=== PATIENT | female | born 1980 | race Caucasian/White ===

== ENCOUNTER 2019-10-22 11:57 | Emergency (ER) | payer OTHER ==
[~2019-10-22] VITALS: Ht 160 cm; Wt 84.1 kg
[2019-10-22 13:02] LABS: BASOPHILS # (AUTO) 0.1 X10'3 (0-0.2); BASOPHILS % (AUTO) 0.7 % (0-1); EOSINOPHILS # (AUTO) 0.1 X10'3 (0-0.9); HEMATOCRIT 43.6 % (35.0-45.0); HEMOGLOBIN 15.3 g/dl (12.0-16.0); LYMPHOCYTES % (AUTO) 11.7 % (21-51); MEAN CORPUSCULAR HEMOGLOBIN 31.5 PG (27.0-31.0); MEAN CORPUSCULAR VOLUME 90.1 FL (78-98); MEAN PLATELET VOLUME 8.5 FL (7.4-10.4); NEUTROPHILS # (AUTO) 6.4 X10'3 (1.8-7.7); NEUTROPHILS % (AUTO) 74.6 % (42-75); PLATELET COUNT 282 X10'3 (140-440); RED BLOOD COUNT 4.84 X10'6 (4.20-5.60); WHITE BLOOD COUNT 8.6 X10'3 (4.5-11.0)
[2019-10-22 13:14] LABS: ALANINE AMINOTRANSFERASE 32 U/L (12-78); ALBUMIN 4.5 G/DL (3.4-5.0); ALBUMIN/GLOBULIN RATIO 1.3 (1.1-1.5); ALKALINE PHOSPHATASE 65 IU/L (46-116); ANION GAP 9 (8-16); ASPARTATE AMINO TRANSFERASE 20 U/L (10-37); BILIRUBIN,TOTAL 0.5 MG/DL (0.1-1.0); BLOOD UREA NITROGEN 12 MG/DL (7-18); BUN/CREATININE RATIO 10.8 (6.6-38.0); CALCIUM 9.4 MG/DL (8.5-10.1); CHLORIDE 104 MMOL/L (99-107); CREATININE 1.11 MG/DL (0.40-0.90); GLUCOSE 84 MG/DL (70-104); SODIUM 139 MMOL/L (135-145); TOTAL CARBON DIOXIDE 25.7 MMOL/L (24-32); TOTAL PROTEIN 8.1 G/DL (6.4-8.2); eGFR 55 ML/MIN
[2019-10-22 15:34] VITALS: BP 134/84
== END 2019-10-22 15:35 | disposition home or self-care (01) ==
LOC: ER 11:58
DX: R00.0 Tachycardia, unspecified (principal); R07.89 Other chest pain; R05 Cough; Z88.2 Allergy status to sulfonamides; Z88.8 Allergy status to other drugs, medicaments and biological substances
CPT/HCPCS: 36415; 71045; 80053; 84484; 85025; 93005; 99284

== ENCOUNTER 2020-11-08 19:08 | Emergency (ER) | payer BC, OTHER ==
[~2020-11-08] VITALS: Ht 160 cm; Wt 86.0 kg
--- NOTE | 2020-11-08 19:30 | NUR ---
PT WAITING FOR BED IN ROOM 18
[2020-11-08] MEDS ORDERED: PANT-47 PO (21:07)
[2020-11-08] MEDS ORDERED: pantoprazole 40mg Tablet.DR PO ONE (21:15)
[2020-11-08 21:17] VITALS: BP 119/79
== END 2020-11-08 21:19 | disposition home or self-care (01) ==
LOC: ER 19:10
DX: R07.89 Other chest pain (principal); R42 Dizziness and giddiness; R06.02 Shortness of breath; R10.13 Epigastric pain; K21.9 Gastro-esophageal reflux disease without esophagitis; Z87.11 Personal history of peptic ulcer disease; Z88.2 Allergy status to sulfonamides; Z88.1 Allergy status to other antibiotic agents; Z88.8 Allergy status to other drugs, medicaments and biological substances; Z79.899 Other long term (current) drug therapy
CPT/HCPCS: 93005; 99283

== ENCOUNTER 2021-02-20 19:35 | Emergency (ER) | payer BC, OTHER ==
[~2021-02-20] VITALS: Ht 157.5 cm; Wt 86.4 kg
[~2021-02-20 19:35] MED LIST: PANT-47 PO
[2021-02-20 19:53] VITALS: BP 128/70
--- NOTE | 2021-02-20 20:15 | NUR ---
Pt presents d/t right hip pain following assisting a patient into bed. Pt AAOx4, no s/sx of acute distress noted at this time. Respirations even, unlabored. Ice pack provided.
== END 2021-02-20 20:54 | disposition home or self-care (01) ==
LOC: ER 19:36
DX: S83.91XA Sprain of unspecified site of right knee, initial encounter (principal); M25.551 Pain in right hip; K21.9 Gastro-esophageal reflux disease without esophagitis; Z87.11 Personal history of peptic ulcer disease; Z88.2 Allergy status to sulfonamides; Z88.8 Allergy status to other drugs, medicaments and biological substances; Z79.899 Other long term (current) drug therapy; X50.1XXA Overexertion from prolonged static or awkward postures, initial encounter; Y93.89 Activity, other specified; Y92.89 Other specified places as the place of occurrence of the external cause; Y99.8 Other external cause status
CPT/HCPCS: 99281

== ENCOUNTER 2021-04-02 09:56 | Emergency (ER) | payer BC, OTHER ==
[~2021-04-02] VITALS: Ht 160 cm; Wt 84.1 kg
[2021-04-02 10:15] VITALS: BP 130/86
[2021-04-02 11:02] LABS: URINE HCG NEGATIVE (NEG)
[2021-04-02 11:04] LABS: CLARITY,URINE CLOUDY (Clear); COLOR,URINE RED (Yellow); PH,URINE 5.5 (4.8-8.0)
[2021-04-02 11:09] LABS: UA COLLECTION TYPE CLN CATCH MIDSTREAM
[2021-04-02 11:18] LABS: BASOPHILS # (AUTO) 0.1 X10'3 (0-0.2); EOSINOPHILS % (AUTO) 0.6 % (0-6); HEMATOCRIT 41.5 % (35.0-45.0); HEMOGLOBIN 14.3 g/dl (12.0-16.0); LYMPHOCYTES # (AUTO) 1.8 X10'3 (1.1-4.8); LYMPHOCYTES % (AUTO) 24.8 % (21-51); MEAN CORPUSCULAR HEMOGLOBIN 32.1 PG (27.0-31.0); MEAN CORPUSCULAR HGB CONC 34.4 g/dL (33.0-36.5); MEAN CORPUSCULAR VOLUME 93.5 FL (78-98); MEAN PLATELET VOLUME 7.5 FL (7.4-10.4); MONOCYTES # (AUTO) 0.5 X10'3 (0-0.9); MONOCYTES % (AUTO) 6.7 % (2-12); NEUTROPHILS # (AUTO) 4.9 X10'3 (1.8-7.7); NEUTROPHILS % (AUTO) 66.9 % (42-75); PLATELET COUNT 309 X10'3 (140-440); RED BLOOD COUNT 4.44 X10'6 (4.20-5.60); RED CELL DISTRIBUTION WIDTH 13.3 % (11.5-14.5); WHITE BLOOD COUNT 7.3 X10'3 (4.5-11.0)
[2021-04-02 11:20] LABS: RBC,URINE TNTC /HPF (0-2); WBC,URINE 20-30 /HPF (0-4)
[2021-04-02 11:21] LABS: BACTERIA,URINE FEW /HPF (Neg); SQUAMOUS EPITHELIAL CELL,UR MODERATE /LPF (FEW)
[2021-04-02 11:27] LABS: PARTIAL THROMBOPLASTIN TIME 30 SECONDS (22-32)
[2021-04-02 11:39] LABS: ALANINE AMINOTRANSFERASE 26 U/L (12-78); ALBUMIN/GLOBULIN RATIO 1.1 (1.1-1.5); ALKALINE PHOSPHATASE 57 IU/L (46-116); ANION GAP 9 (8-16); ASPARTATE AMINO TRANSFERASE 16 U/L (10-37); BILIRUBIN,TOTAL 0.4 MG/DL (0.1-1.0); BLOOD UREA NITROGEN 9 MG/DL (7-18); BUN/CREATININE RATIO 8.5 (6.6-38.0); CALCIUM 8.9 MG/DL (8.5-10.1); CHLORIDE 105 MMOL/L (99-107); CREATININE 1.06 MG/DL (0.40-0.90); GLUCOSE 84 MG/DL (70-104); POTASSIUM 3.7 MMOL/L (3.5-5.1); SODIUM 141 MMOL/L (135-145); TOTAL CARBON DIOXIDE 26.6 MMOL/L (24-32); TOTAL PROTEIN 7.5 G/DL (6.4-8.2); eGFR 57 ML/MIN
[2021-04-02 11:44] LABS: BETA HCG,QUANTITATIVE 18 mIU/ml
[2021-04-02] MEDS ORDERED: NITR100C PO (11:56)
== END 2021-04-02 12:11 | disposition home or self-care (01) ==
LOC: ER 09:57
DX: N39.0 Urinary tract infection, site not specified (principal); R10.30 Lower abdominal pain, unspecified; K21.9 Gastro-esophageal reflux disease without esophagitis; R35.8 Other polyuria; Z90.49 Acquired absence of other specified parts of digestive tract; Z88.2 Allergy status to sulfonamides; Z88.1 Allergy status to other antibiotic agents; Z91.040 Latex allergy status; Z79.899 Other long term (current) drug therapy
CPT/HCPCS: 36415; 80053; 81001; 81025; 84702; 85025; 85610; 85730; 87088; 99283

== ENCOUNTER 2021-04-12 11:48 | Outpatient (CLI) | payer BC ==
[~2021-04-12 11:48] MED LIST changes: +NITR100C PO
== END 2021-04-12 23:59 | disposition home or self-care (01) ==
LOC: LAB 11:48
PROVIDERS: ATTEND Physician Assistant
DX: O03.9 Complete or unspecified spontaneous abortion without complication (principal)
CPT/HCPCS: 36415; 84702

== ENCOUNTER 2022-05-25 09:08 | Outpatient (CLI) | payer BC ==
[2022-05-25 09:36] LABS: BASOPHILS # (AUTO) 0.1 X10'3 (0-0.2); BASOPHILS % (AUTO) 0.8 % (0-1); EOSINOPHILS # (AUTO) 0.2 X10'3 (0-0.9); LYMPHOCYTES # (AUTO) 2.2 X10'3 (1.1-4.8); LYMPHOCYTES % (AUTO) 25.2 % (21-51); MEAN CORPUSCULAR HEMOGLOBIN 31.8 PG (27.0-31.0); MEAN CORPUSCULAR HGB CONC 34.2 g/dL (33.0-36.5); MEAN PLATELET VOLUME 7.2 FL (7.4-10.4); MONOCYTES # (AUTO) 0.7 X10'3 (0-0.9); MONOCYTES % (AUTO) 7.8 % (2-12); NEUTROPHILS # (AUTO) 5.5 X10'3 (1.8-7.7); NEUTROPHILS % (AUTO) 64.2 % (42-75); PLATELET COUNT 266 X10'3 (140-440); RED BLOOD COUNT 4.72 X10'6 (4.20-5.60); RED CELL DISTRIBUTION WIDTH 13.5 % (11.5-14.5); WHITE BLOOD COUNT 8.5 X10'3 (4.5-11.0)
[2022-05-25 10:08] LABS: ALANINE AMINOTRANSFERASE 28 U/L (12-78); ALBUMIN 3.9 G/DL (3.4-5.0); ALKALINE PHOSPHATASE 62 IU/L (46-116); ANION GAP 10 (8-16); ASPARTATE AMINO TRANSFERASE 21 U/L (10-37); BILIRUBIN,TOTAL 0.4 MG/DL (0.1-1.0); BLOOD UREA NITROGEN 20 MG/DL (7-18); BUN/CREATININE RATIO 17.9 (6.6-38.0); CALCIUM 8.7 MG/DL (8.5-10.1); CHLORIDE 103 MMOL/L (99-107); CREATININE 1.12 MG/DL (0.40-0.90); GLUCOSE 86 MG/DL (70-104); SODIUM 139 MMOL/L (135-145); TOTAL CARBON DIOXIDE 25.7 MMOL/L (24-32); TOTAL PROTEIN 7.7 G/DL (6.4-8.2); eGFR 53 ML/MIN
[2022-05-25 10:10] LABS: POTASSIUM 4.3 MMOL/L (3.5-5.1)
[2022-05-25 10:41] LABS: HEMOGLOBIN A1C 4.9 % (4.5-6.2)
== END 2022-05-25 23:59 | disposition home or self-care (01) ==
LOC: LAB 09:08
PROVIDERS: ATTEND Family Medicine
DX: E11.9 Type 2 diabetes mellitus without complications (principal); E03.9 Hypothyroidism, unspecified
CPT/HCPCS: 36415; 80053; 83036; 84443; 85025

== ENCOUNTER 2022-09-06 18:02 | Emergency (ER) | payer BC ==
[~2022-09-06] VITALS: Ht 160 cm; Wt 91.8 kg
[2022-09-06] MEDS ORDERED: LIDOcaine Viscous 15ml cup MM STA (18:56)
[2022-09-06] MEDS ORDERED: mag hydrox/Alum hydrox/simeth 30ml oral suspension PO STA (18:56)
[2022-09-06] MEDS ORDERED: acetaminophen 325mg tablet PO ONE (20:50)
[2022-09-06 21:22] LABS: BASOPHILS # (AUTO) 0.1 X10'3 (0-0.2); BASOPHILS % (AUTO) 1.1 % (0-1); EOSINOPHILS # (AUTO) 0.3 X10'3 (0-0.9); EOSINOPHILS % (AUTO) 2.2 % (0-6); HEMATOCRIT 44.5 % (35.0-45.0); HEMOGLOBIN 14.9 g/dl (12.0-16.0); LYMPHOCYTES # (AUTO) 3.3 X10'3 (1.1-4.8); LYMPHOCYTES % (AUTO) 28.4 % (21-51); MEAN CORPUSCULAR HEMOGLOBIN 31.4 PG (27.0-31.0); MEAN CORPUSCULAR HGB CONC 33.4 g/dL (33.0-36.5); MEAN CORPUSCULAR VOLUME 94.1 FL (78-98); MEAN PLATELET VOLUME 7.1 FL (7.4-10.4); MONOCYTES # (AUTO) 0.9 X10'3 (0-0.9); MONOCYTES % (AUTO) 7.9 % (2-12); NEUTROPHILS % (AUTO) 60.4 % (42-75); PLATELET COUNT 315 X10'3 (140-440); RED BLOOD COUNT 4.73 X10'6 (4.20-5.60); RED CELL DISTRIBUTION WIDTH 13.6 % (11.5-14.5); WHITE BLOOD COUNT 11.6 X10'3 (4.5-11.0)
[2022-09-06 21:30] LABS: ALANINE AMINOTRANSFERASE 36 U/L (12-78); ALBUMIN 4.1 G/DL (3.4-5.0); ALBUMIN/GLOBULIN RATIO 1.1 (1.1-1.5); ALKALINE PHOSPHATASE 67 IU/L (46-116); ANION GAP 7 (8-16); ASPARTATE AMINO TRANSFERASE 23 U/L (10-37); BILIRUBIN,TOTAL 0.5 MG/DL (0.1-1.0); BLOOD UREA NITROGEN 20 MG/DL (7-18); CALCIUM 9.6 MG/DL (8.5-10.1); CHLORIDE 102 MMOL/L (99-107); CREATININE 1.11 MG/DL (0.40-0.90); GLUCOSE 77 MG/DL (70-104); SODIUM 138 MMOL/L (135-145); TOTAL CARBON DIOXIDE 28.8 MMOL/L (24-32); TOTAL PROTEIN 7.9 G/DL (6.4-8.2); eGFR 54 ML/MIN
[2022-09-06 21:39] LABS: LIPASE 128 U/L (73-393)
[2022-09-06 22:36] VITALS: BP 128/70
== END 2022-09-06 22:38 | disposition home or self-care (01) ==
LOC: ER 18:03
DX: R07.89 Other chest pain (principal); K29.00 Acute gastritis without bleeding; F41.9 Anxiety disorder, unspecified; R06.02 Shortness of breath; K21.9 Gastro-esophageal reflux disease without esophagitis; Z87.11 Personal history of peptic ulcer disease; Z90.49 Acquired absence of other specified parts of digestive tract; Z88.2 Allergy status to sulfonamides; Z88.1 Allergy status to other antibiotic agents; Z91.040 Latex allergy status; Z79.899 Other long term (current) drug therapy
CPT/HCPCS: 36415; 71045; 80053; 83690; 83880; 84484; 85025; 93005; 99285; L4360

== ENCOUNTER 2023-04-23 18:51 | Emergency (ER) | payer BC, OTHER ==
[~2023-04-23] VITALS: Ht 157.5 cm; Wt 90.9 kg
[2023-04-23 18:55] VITALS: BP 142/82
== END 2023-04-23 22:08 | disposition home or self-care (01) ==
LOC: ER 18:52
DX: R51.9 Headache, unspecified (principal); K21.9 Gastro-esophageal reflux disease without esophagitis; Z88.2 Allergy status to sulfonamides; Z91.09 Other allergy status, other than to drugs and biological substances; Z88.1 Allergy status to other antibiotic agents; Z91.040 Latex allergy status; Z90.49 Acquired absence of other specified parts of digestive tract
CPT/HCPCS: 70450; 99284

== ENCOUNTER 2023-06-05 14:08 | Emergency (ER) | payer BC ==
[~2023-06-05] VITALS: Ht 157.5 cm; Wt 90.9 kg
[2023-06-05 14:24] VITALS: BP 131/82; PULSE 74; RESP 16; TEMP 97.6; O2SAT 96
== END 2023-06-05 16:06 | disposition home or self-care (01) ==
LOC: ER 14:08
DX: E16.1 Other hypoglycemia (principal); K21.9 Gastro-esophageal reflux disease without esophagitis; Z90.49 Acquired absence of other specified parts of digestive tract; Z88.2 Allergy status to sulfonamides; Z79.899 Other long term (current) drug therapy
CPT/HCPCS: 82948; 93005; 99284

== ENCOUNTER 2023-06-11 15:10 | Emergency (ER) | payer BC, OTHER ==
[~2023-06-11] VITALS: Ht 157.5 cm; Wt 97.7 kg
[2023-06-11 15:13] VITALS: BP 154/80; PULSE 89; RESP 16; TEMP 98; O2SAT 97
== END 2023-06-11 16:32 | disposition home or self-care (01) ==
LOC: ER 15:10
DX: Z00.00 Encounter for general adult medical examination without abnormal findings (principal); K21.9 Gastro-esophageal reflux disease without esophagitis; Z77.21 Contact with and (suspected) exposure to potentially hazardous body fluids; Z88.2 Allergy status to sulfonamides; Z91.09 Other allergy status, other than to drugs and biological substances; Z88.1 Allergy status to other antibiotic agents; Z91.040 Latex allergy status; Z79.899 Other long term (current) drug therapy; Z90.49 Acquired absence of other specified parts of digestive tract
CPT/HCPCS: 99281

== ENCOUNTER 2023-08-07 08:18 | Emergency (ER) | payer OTHER ==
[~2023-08-07] VITALS: Ht 157.5 cm; Wt 95.5 kg
[2023-08-07 08:21] VITALS: BP 145/87; PULSE 82; RESP 18; O2SAT 98
[2023-08-07 09:51] VITALS: TEMP 97.1
== END 2023-08-07 09:52 | disposition home or self-care (01) ==
LOC: ER 08:18
DX: T78.49XA Other allergy, initial encounter (principal); X58.XXXA Exposure to other specified factors, initial encounter; K21.9 Gastro-esophageal reflux disease without esophagitis; Z88.2 Allergy status to sulfonamides; Z88.5 Allergy status to narcotic agent; Z79.899 Other long term (current) drug therapy
CPT/HCPCS: 99282

== ENCOUNTER 2023-09-19 10:00 | Outpatient (CLI) | payer BC ==
[2023-09-19 12:38] LABS: BASOPHILS % (AUTO) 0.2 % (0-1); EOSINOPHILS # (AUTO) 0.1 X10'3 (0-0.9); HEMATOCRIT 45.2 % (35.0-45.0); HEMOGLOBIN 15.4 g/dl (12.0-16.0); LYMPHOCYTES # (AUTO) 2.5 X10'3 (1.1-4.8); LYMPHOCYTES % (AUTO) 25.1 % (21-51); MEAN CORPUSCULAR HEMOGLOBIN 32.1 PG (27.0-31.0); MEAN CORPUSCULAR VOLUME 94.3 FL (78-98); MEAN PLATELET VOLUME 8.2 FL (7.4-10.4); MONOCYTES # (AUTO) 0.7 X10'3 (0-0.9); MONOCYTES % (AUTO) 7.1 % (2-12); NEUTROPHILS # (AUTO) 6.6 X10'3 (1.8-7.7); NEUTROPHILS % (AUTO) 66.6 % (42-75); PLATELET COUNT 301 X10'3 (140-440); RED CELL DISTRIBUTION WIDTH 13.6 % (11.5-14.5); WHITE BLOOD COUNT 9.9 X10'3 (4.5-11.0)
[2023-09-19 13:03] LABS: ALANINE AMINOTRANSFERASE 44 U/L (12-78); ALBUMIN 4.2 G/DL (3.4-5.0); ALBUMIN/GLOBULIN RATIO 1.1 (1.1-1.5); ALKALINE PHOSPHATASE 70 IU/L (46-116); ANION GAP 8 (8-16); ASPARTATE AMINO TRANSFERASE 24 U/L (10-37); BILIRUBIN,TOTAL 0.7 MG/DL (0.1-1.0); BLOOD UREA NITROGEN 8 MG/DL (7-18); BUN/CREATININE RATIO 6.7 (10.0-20.0); CALCIUM 9.1 MG/DL (8.5-10.1); CHLORIDE 103 MMOL/L (99-107); CHOL/HDL RATIO 2.6 (0.00-4.99); CHOLESTEROL 153 MG/DL (0-200); FREE T4 (FREE THYROXINE) 1.17 NG/DL (0.73-1.40); GLUCOSE 76 MG/DL (70-104); HDL CHOLESTEROL 59 MG/DL (35-60); LDL CHOLESTEROL 83 MG/DL (50-100); POTASSIUM 3.9 MMOL/L (3.5-5.1); SODIUM 137 MMOL/L (135-145); THYROID STIMULATING HORMONE 1.75 ulU/ml (0.34-4.50); TOTAL CARBON DIOXIDE 26.5 MMOL/L (24-32); TOTAL PROTEIN 8.1 G/DL (6.4-8.2); TRIGLYCERIDES 44 MG/DL (20-135); eGFR 49 ML/MIN
[2023-09-19 14:11] LABS: HEMOGLOBIN A1C 4.8 % (4.5-6.2)
[2023-09-20 12:02] LABS: C-PEPTIDE, SERUM 2.9 ng/mL (1.1-4.4); INSULIN 9.9 uIU/mL (2.6-24.9)
== END 2023-09-19 23:59 | disposition home or self-care (01) ==
LOC: RAD 10:00
PROVIDERS: ATTEND Nurse Practitioner Occupational Health
DX: Z00.01 Encounter for general adult medical examination with abnormal findings (principal); M75.101 Unspecified rotator cuff tear or rupture of right shoulder, not specified as traumatic; M48.02 Spinal stenosis, cervical region; E11.65 Type 2 diabetes mellitus with hyperglycemia; E16.2 Hypoglycemia, unspecified; E78.00 Pure hypercholesterolemia, unspecified; M54.2 Cervicalgia; M25.511 Pain in right shoulder; R53.83 Other fatigue
CPT/HCPCS: 36415; 72141; 73221; 80053; 80061; 83036; 83525; 84439; 84443; 84681; 85025

== ENCOUNTER 2024-05-08 13:30 | Emergency (ER) | payer BC ==
[~2024-05-08] VITALS: Ht 154.9 cm; Wt 93.2 kg
[2024-05-08 13:40] VITALS: TEMP 98
[2024-05-08 13:47] LABS: BASOPHILS # (AUTO) 0.1 X10'3 (0-0.2); BASOPHILS % (AUTO) 1.1 % (0-1); EOSINOPHILS # (AUTO) 0.2 X10'3 (0-0.9); EOSINOPHILS % (AUTO) 1.8 % (0-6); HEMATOCRIT 44.2 % (35.0-45.0); HEMOGLOBIN 15.2 g/dl (12.0-16.0); LYMPHOCYTES # (AUTO) 3.1 X10'3 (1.1-4.8); MEAN CORPUSCULAR HEMOGLOBIN 32.1 PG (27.0-31.0); MEAN CORPUSCULAR HGB CONC 34.3 g/dL (33.0-36.5); MEAN CORPUSCULAR VOLUME 93.7 FL (78-98); MEAN PLATELET VOLUME 7.1 FL (7.4-10.4); MONOCYTES # (AUTO) 1.1 X10'3 (0-0.9); NEUTROPHILS # (AUTO) 5.2 X10'3 (1.8-7.7); NEUTROPHILS % (AUTO) 54.1 % (42-75); PLATELET COUNT 280 X10'3 (140-440); RED BLOOD COUNT 4.72 X10'6 (4.20-5.60); RED CELL DISTRIBUTION WIDTH 13.7 % (11.5-14.5); WHITE BLOOD COUNT 9.5 X10'3 (4.5-11.0)
[2024-05-08] MEDS: LIDOcaine 2% Viscous 15ml cup MM PRN (14:11)
[2024-05-08] MEDS: mag hydrox/Alum hydrox/simeth 30ml oral suspension PO ONE (14:11)
[2024-05-08 14:19] LABS: ALANINE AMINOTRANSFERASE 43 U/L (12-78); ALBUMIN 3.7 G/DL (3.4-5.0); ALKALINE PHOSPHATASE 75 IU/L (46-116); ANION GAP 9 (8-16); ASPARTATE AMINO TRANSFERASE 18 U/L (10-37); BILIRUBIN,TOTAL 0.4 MG/DL (0.1-1.0); BLOOD UREA NITROGEN 12 MG/DL (7-18); BUN/CREATININE RATIO 10.9 (10.0-20.0); CALCIUM 8.9 MG/DL (8.5-10.1); CHLORIDE 102 MMOL/L (99-107); GLUCOSE 81 MG/DL (70-104); POTASSIUM 3.4 MMOL/L (3.5-5.1); PRO BRAIN NATRIURETIC PEPTIDE < 30 PG/ML (0-125); SODIUM 139 MMOL/L (135-145); TOTAL CARBON DIOXIDE 27.8 MMOL/L (24-32); TOTAL PROTEIN 7.4 G/DL (6.4-8.2); eCRCL 49 ML/MIN; eGFR 54 ML/MIN
[2024-05-08 16:15] VITALS: BP 110/72; PULSE 72; RESP 17; O2SAT 98
== END 2024-05-08 16:54 | disposition home or self-care (01) ==
LOC: ER 13:30
DX: R07.89 Other chest pain (principal); K21.9 Gastro-esophageal reflux disease without esophagitis; Z88.2 Allergy status to sulfonamides; Z91.09 Other allergy status, other than to drugs and biological substances; Z88.1 Allergy status to other antibiotic agents; Z79.899 Other long term (current) drug therapy; Z90.49 Acquired absence of other specified parts of digestive tract
CPT/HCPCS: 36415; 71045; 80053; 83880; 84484; 85025; 93005; 99285

== ENCOUNTER 2025-01-03 17:18 | Emergency (ER) | payer BC ==
[~2025-01-03] VITALS: Ht 157.5 cm; Wt 94.8 kg
[2025-01-03 18:34] VITALS: BP 150/75; PULSE 95; RESP 16; TEMP 98.1; O2SAT 98
== END 2025-01-03 18:35 | disposition home or self-care (01) ==
LOC: ER 17:18
DX: M25.511 Pain in right shoulder (principal); K21.9 Gastro-esophageal reflux disease without esophagitis; F10.90 Alcohol use, unspecified, uncomplicated; Z90.49 Acquired absence of other specified parts of digestive tract; Z88.2 Allergy status to sulfonamides; Z88.1 Allergy status to other antibiotic agents; Z91.040 Latex allergy status; Z91.048 Other nonmedicinal substance allergy status; Y90.9 Presence of alcohol in blood, level not specified
CPT/HCPCS: 73030; 99283

== ENCOUNTER 2025-01-05 10:53 | Outpatient (CLI) | payer BC | END 2025-01-05 23:59 | disposition home or self-care (01) | LOC: MRI02 10:53 | PROVIDERS: ATTEND Physician Assistant | DX: M19.011 Primary osteoarthritis, right shoulder (principal); M25.511 Pain in right shoulder; R53.1 Weakness; M75.101 Unspecified rotator cuff tear or rupture of right shoulder, not specified as traumatic; M75.51 Bursitis of right shoulder | CPT/HCPCS: 73221 ==

== ENCOUNTER 2025-06-11 19:11 | Emergency (ER) | payer BC ==
[~2025-06-11] VITALS: Ht 157.5 cm; Wt 80.8 kg
[2025-06-11 19:16] VITALS: TEMP 97.6
[2025-06-11 19:46] LABS: MEAN PLATELET VOLUME 7.2 FL (7.4-10.4); RED CELL DISTRIBUTION WIDTH 13.4 % (11.5-14.5)
--- NOTE | 2025-06-11 19:55 | Physician Documentation ---
History of Present Illness ~ Chief Complaint: Chest Pain Stated Complaint: CHEST PAIN Time Seen by MD: 19:50 Primary Medical Doctor: Dr. Angeles Mode of Arrival: POV HPI Patient presents to the emergency room for evaluation of central chest pain. She endorses history of anxiety he is unsure if this is anxiety versus something else. She was playing cards when symptoms began. History of reflux but she does not take any medicines for this. She denies any one-sided leg pain. No na usea or vomiting. Bladder and bowel are normal. Endorses recent mild cough. Medication Reconciliation Allergies: Coded Allergies: Sulfa (Sulfonamide Antibiotics) (Verified Allergy, Unknown, RASH, ACHES, BUMPS ON HEAD, 06/11/25) adhesive tape (Verified Allergy, Unknown, 06/11/25) alprazolam (Verified Allergy, Unknown, INCREASED ANXIETY, 06/11/25) cephalexin (Verified Allergy, Unknown, RASH, 06/11/25) citalopram (Verified Allergy, Unknown, INCREASED ANXIETY, HEARING VOICES, 06/11/25) latex (Verified Allergy, Unknown, 06/11/25) ranitidine (Verified Allergy, Unknown, RASH, 06/05/23) Uncoded Allergies: SIMETHOCONE (Allergy, Severe, 08/07/23) Scheduled Nitrofurantoin Macrocrystal (Nitrofurantoin), 1 CAP PO Q12H Pantoprazole Sodium (PROTONIX tablet), 1 TAB PO DAILY Past Medical History Past Medical History: *GI/HEPATOBILIARY*, GERD, Peptic Ulcer Disease Past Surgical History: cholecystectomy Alcohol Use: Heavy Drug Use: none Lives In: Home Occupation: employed Review of Systems ROS All review of systems negative except as per HPI Physical Exam Vital Signs: Temperature: 97.6, Source: Temporal, Heart Rate: 97, Respiratory Rate: 18, BP: 146/74, Pulse Oximetry: 99, Weight: 80.850 Physical Exam General: Patient is awake, alert, oriented x4 in no acute distress. Mildly anxious Head: Normocephalic and atraumatic. Eyes: Conjunctival normal. EOMI. PERRL. ENT: Mucous membranes moist. Neck: Supple, trachea is midline. Chest: Clear to auscultation bilaterally without rales, rhonchi, or wheezes. There is no accessory muscle use or retractions. Cardiac: RRR without murmurs, gallops, or rubs. Abd: Soft, nondistended, nontender, with normoactive bowel sounds. No guarding, rebound, or rigidity. Extremities: Normal strength. Normal range of motion. No deformities or edema. No calf tenderness to palpation Progress Results/Orders Results/Orders Orders - NOBLE KIRK MD Chest,Single View (06/11/25 19:39) Monitor (06/11/25 19:19) Saline Lock (06/11/25 19:19) Oxygen (06/11/25 19:19) Electrocardiogram (06/11/25 19:19) Hs Troponin I W Calculations (06/11/25 21:19) Hs Troponin I W Calculations (06/11/25 22:19) Completed Orders - NOBLE KIRK MD Chest,Single View (06/11/25 19:39) Cbc/Diff (06/11/25 19:19) BMP (06/11/25 19:19) PBNP (06/11/25 19:19) Hs Troponin I W Calculations (06/11/25 19:19) Mag & Alum Hydrox/Simeth Susp (Maalox Or (06/11/25 20:00) Lidocaine 2% Viscous (Xylocaine 2% Visco (06/11/25 20:00) Medications Received in ER Medications (Trade) Dose Ordered Sig/Bia Route PRN Reason Start Time Stop Time Status Last Admin Dose Admin (Maalox oral suspension) 30 ml ONCE ONCE PO 06/11/25 20:00 06/11/25 20:01 DC 06/11/25 20:04 30 ML (Xylocaine 2% Viscous 15mL cup) 15 ml ONCE ONCE MM 06/11/25 20:00 06/11/25 20:01 DC 06/11/25 20:04 15 ML Vital Signs 06/11/25 06/11/25 19:16 19:35 Temp 97.6 Pulse 97 Resp 15 18 B/P (MAP) 146/74 Pulse Ox 99 Laboratory Tests Test 06/11/25 19:34 White Blood Count 8.8 Red Blood Count 4.55 Hemoglobin 14.3 Hematocrit 41.7 Mean Corpuscular Volume 91.7 Mean Corpuscular Hemoglobin 31.5 H Mean Corpuscular Hemoglobin Concent 34.4 Red Cell Distribution Width 13.4 Platelet Count 267 Mean Platelet Volume 7.2 L Neutrophils (%) (Auto) 53.6 Lymphocytes (%) (Auto) 30.7 Monocytes (%) (Auto) 12.2 H Eosinophils (%) (Auto) 2.5 Basophils (%) (Auto) 1.0 Neutrophils # (Auto) 4.7 Lymphocytes # (Auto) 2.7 Monocytes # (Auto) 1.1 H Eosinophils # (Auto) 0.2 Basophils # (Auto) 0.1 CBC Comment Sodium Level 136 Potassium Level 3.9 Chloride Level 102 Carbon Dioxide Level 27.0 Anion Gap 7 L Blood Urea Nitrogen 11 Creatinine 1.15 H Estimated GFR/1.73 m2 51 BUN/Creatinine Ratio 9.6 L Glucose Level 88 Calcium Level 9.1 Troponin I High Sensitivity < 4 L Troponin I High Sens Percent Delta Troponin I Hi Sens Absolute Change Pro-B-Type Natriuretic Peptide < 30 Albumin 3.8 Chemistry Comments EKG/XRAY/CT/US/VASC/MRI EKG : Additional Comment EKG interpreted by myself shows time of 1921, rate 90, sinus rhythm, normal axis, no ST changes Chest X-Ray : Additional Comments Exam: CHEST,SINGLE VIEW EXAM: DI CHEST,SINGLE VIEW TECHNIQUE: Single frontal chest radiograph CLINICAL HISTORY: CP COMPARISON: DI CHEST,SINGLE VIEW on DOS: 05/08/24, CHEST,SINGLE VIEW on DOS: 09/06/22, CHEST,SINGLE VIEW on DOS: 10/22/19 Findings/Impression: Frontal chest radiograph demonstrates no acute osseous or superficial soft tissue abnormalities. The trachea is midline. The cardiac silhouette and mediastinum are within normal limits. No pneumothorax, pleural effusions, or consolidations. Medical Decision Making Findings Patient reports positive response to GI cocktail. Patient presented to the emergency room with chest pain as per HPI. Differentials include but are not limited to ACS, pulmonary embolism, anxiety, aortic pathology, reflux therefore emergent labs and chest x-ray ordered which were reassuring. Patient is low cardiovascular risk with a heart score of one. No hypoxia, no tachycardia no calf tenderness to palpation and he had not feel she requires investigation into possible pulmonary embolism. Departure Disposition: HOME / SELF CARE / HOMELESS Impression: Primary Impression: Chest pain Additional Impression: Reflux esophagitis Condition: Improved Discharge Instructions: Gastroesophageal Reflux Scan Referrals: EMERGENCY,DEPARTMENT (PCP) Prescriptions Pantoprazole Sodium (PROTONIX tablet) 40 Mg Tablet.dr 1 TAB PO DAILY for 30 Days, #30 TAB 0 Refills Prov: NOBLE KIRK MD 06/11/25 Education Educated: Patient Educated regarding: diagnosis, treatment, need for follow up Signature Scribe Signature: No scribe Attestation: The note accurately reflects work and decisions made by me.Noble Kirk MD 06/11/25 20:32 NOBLE KIRK MD Jun 11, 2025 19:55
[2025-06-11] MEDS: mag hydrox/Alum hydrox/simeth 30ml oral suspension PO ONE (20:04)
[2025-06-11] MEDS: LIDOcaine 2% Viscous 15ml cup MM ONE (20:04)
[2025-06-11 20:20] LABS: CREATININE 1.15 MG/DL (0.40-0.90); PRO BRAIN NATRIURETIC PEPTIDE < 30 PG/ML (0-125); TOTAL CARBON DIOXIDE 27.0 MMOL/L (24-32); eCRCL 49 ML/MIN; eGFR 51 ML/MIN
[2025-06-11] MEDS ORDERED: PANT-47 PO (20:32)
[2025-06-11] MEDS: pantoprazole 40mg Tablet.DR PO ONE (20:42)
[2025-06-11 20:44] VITALS: BP 136/88; PULSE 68; RESP 16; O2SAT 98
--- NOTE | 2025-06-12 05:41 | ELECTROCARDIOGRAPH REPORT ---
[facility] Test Date: 2025-06-11 Test Time: 19:22:10 Pat Name: HSABBIR ALLEN Department: EMERGENCY ROOM Room: Gender: F [employer] Operator: LYNDSEY : 1980 Requested By: SIVA GIBBS Order Number: [id number] Reading MD: Measurements Intervals [place] Rate: 90 P: 58 IL: 131 QRS: 25 QRSD: 78 T: 2 QT: 321 QTc: 393 Interpretive Statements Sinus rhythm Low voltage, precordial leads Borderline T abnormalities, anterior leads Please click the below link to view image of tracing.
== END 2025-06-11 20:45 | disposition home or self-care (01) ==
LOC: ER 19:13
DX: R07.89 Other chest pain (principal); K21.00 Gastro-esophageal reflux disease with esophagitis, without bleeding; R06.02 Shortness of breath; Z87.11 Personal history of peptic ulcer disease; Z88.1 Allergy status to other antibiotic agents; Z88.2 Allergy status to sulfonamides; Z90.49 Acquired absence of other specified parts of digestive tract; Z91.040 Latex allergy status; Z91.048 Other nonmedicinal substance allergy status
CPT/HCPCS: 36415; 71045; 80048; 83880; 84484; 85025; 93005; 99285